=== PATIENT | male | born 1990 | race Caucasian/White ===

== ENCOUNTER 2017-01-25 14:00 | Inpatient (IN) | payer MEDICAID, SELFPAY ==
[~2017-01-25] VITALS: Ht 193 cm; Wt 129.8 kg
[2017-01-25 14:47] LABS: MEAN CORPUSCULAR HEMOGLOBIN 28.5 pg (27.0-33.0); MEAN CORPUSCULAR HGB CONC 34.2 g/dl (32.0-36.5); MEAN CORPUSCULAR VOLUME 83.3 fl (80.0-96.0); RED CELL DISTRIBUTION WIDTH 12.5 % (11.5-14.5); WHITE BLOOD COUNT 8.7 K/mm3 (4.0-10.0)
[2017-01-25 15:14] LABS: ALBUMIN 3.9 GM/DL (3.2-5.2); ALBUMIN/GLOBULIN RATIO 1.03 (1.00-1.93); ALKALINE PHOSPHATASE 69 U/L (45-117); ALT/SGPT 48 U/L (12-78); ANION GAP 5 MEQ/L (8-16); AST/SGOT 21 U/L (15-37); BILIRUBIN,DIRECT 0.1 MG/DL (0.0-0.2); BILIRUBIN,TOTAL 0.5 MG/DL (0.2-1.0); BLOOD UREA NITROGEN 10 MG/DL (7-18); CALCIUM LEVEL 9.4 MG/DL (8.5-10.1); CARBON DIOXIDE LEVEL 31 MEQ/L (21-32); CHLORIDE LEVEL 104 MEQ/L (98-107); CREATININE FOR GFR 1.19 MG/DL (0.70-1.30); GLOMERULAR FILTRATION RATE > 60.0 (>60); GLUCOSE, FASTING 91 MG/DL (70-105); POTASSIUM SERUM 3.9 MEQ/L (3.5-5.1); SODIUM LEVEL 140 MEQ/L (136-145); TOTAL PROTEIN 7.7 GM/DL (6.4-8.2)
[2017-01-25 16:40] LABS: METHADONE URINE NEGATIVE (NEGATIVE)
[2017-01-26] MEDS ORDERED: NEOSPORIN OINT 0.9 GM PKT (FLOOR STOCK) As Ordered ONE (01:10)
[2017-01-26] MEDS ORDERED: TYLE325T5 PO (10:16)
[2017-01-26 14:10] VITALS: BP 131/80
[2017-01-26] MEDS ORDERED: MAALOX 30 ML SUSP *UDC PO PRN (16:45)
[2017-01-26] MEDS ORDERED: MOM 30ML SUSPENSION UDC PO PRN (16:45)
[2017-01-26] MEDS ORDERED: ACETAMINOPHEN TAB 650MG DOSE (2X325MG) PO PRN (16:45)
[2017-01-26] MEDS ORDERED: traZODone 50 MG TAB PO PRN (16:45)
[2017-01-27 06:41] VITALS: BP 136/82
[2017-01-27 18:37] VITALS: BP 121/70
[2017-01-28 06:18] VITALS: BP 137/67
[2017-01-28 18:00] VITALS: BP 125/70
[2017-01-29 07:24] VITALS: BP 131/74
[2017-01-29 18:00] VITALS: BP 119/70
[2017-01-30 06:34] VITALS: BP 104/53
[2017-01-30 08:12] LABS: THYROXINE (T4) 8.2 UG/DL (4.5-12.0)
== END 2017-01-30 15:00 | disposition home or self-care (01) | DRG 754 ==
LOC: M ED 14:45 → M ED INP 01-26 13:27 → M PSY 01-26 14:00
PROVIDERS: ADMIT Psychiatry & Neurology Psychiatry; ATTEND Psychiatry & Neurology Psychiatry
DX: F32.9 Major depressive disorder, single episode, unspecified (principal); F84.0 Autistic disorder; F63.9 Impulse disorder, unspecified; F90.9 Attention-deficit hyperactivity disorder, unspecified type; Z63.8 Other specified problems related to primary support group